=== PATIENT | male | born 1965 | race Caucasian/White ===

== ENCOUNTER 2016-08-13 17:49 | Emergency (ER) | payer OTHER ==
[~2016-08-13] VITALS: Ht 182.9 cm; Wt 94.5 kg
[~2016-08-13 17:49] MED LIST: HYDR-3498 PO; IBUP-1542 PO
[2016-08-13 17:57] VITALS: Ht 182.9 cm; Wt 94.5 kg
[2016-08-13] MEDS ORDERED: LIDOCAINE 1%/EPI 30 ML INJ INJ STA (19:01)
[2016-08-13] MEDS ORDERED: HYDROmorphONE 1 MG/ML SYG IV STA (19:01)
[2016-08-13] MEDS ORDERED: ONDANSETRON 4 MG INJ IV STA (19:01)
--- NOTE | 2016-08-13 19:33 | ERD ---
ER Documentation Chief Complaint Date/Time DATE: 08/13/16 TIME: 19:31 Chief Complaint pt here for abscess x 5 days; cp complaint HPI 51-year-old male history of IV drug abuse, multiple abscesses who presents to the emergency room with an abscess to the left hip. He describes approximately 5 days of symptoms. He also reported chest pain but describes the chest pain is pain radiating from the abscess up into his body and into his chest. He denies pleuritic pain, no exertional symptoms, no history of hypertension, cardiac disease or stents. He denies pleuritic pain, calf swelling. ROS All systems reviewed and are negative except as per history of present illness. Medications Home Meds Active Scripts Ibuprofen* (Motrin*) 800 Mg Tab, 800 MG PO Q6H Y for PAIN AND OR ELEVATED TEMP, #30 TAB Prov:SANTOS MAGALLON MD 08/13/16 Cephalexin* (Keflex*) 500 Mg Capsule, 500 MG PO QID for 7 Days, CAP Prov:SANTOS MAGALLON MD 08/13/16 Sulfamethoxazole-Trimethoprim* (Bactrim* DS) 800-160 Mg Tab, 1 TAB PO BID for 7 Days, TAB Prov:SANTOS MAGALLON MD 08/13/16 Ibuprofen* (Motrin*) 600 Mg Tab, 600 MG PO Q6, #20 TAB Prov:CHASIDY GARNETT MD 07/15/15 Hydrocodone Bit-Acetaminophen* ([place]*) 5-325 Mg Tab, 1 TAB PO Q6 Y for PAIN, # 10 TAB Prov:CHASIDY GARNETT MD 07/15/15 Allergies Allergies: Coded Allergies: No Known Allergy (Unverified , 07/15/15) PMhx/Soc History of Surgery: Yes (APPENDECTOMY; LUNG,SHOULDER, NOSE SURGERY) Anesthesia Reaction: No Hx Neurological Disorder: No Hx Respiratory Disorders: No Hx Cardiac Disorders: No Hx Psychiatric Problems: No Hx Miscellaneous Medical Probl: Yes (CHRONIC PANCREATITIS, HEP C) Hx Alcohol Use: Yes (USED TO DRINK ALCOHOL) Hx Substance Use: No Hx Tobacco Use: Yes Smoking Status: Current every day smoker Physical Exam Vitals Vital Signs Date Time Temp Pulse Resp B/P Pulse Ox O2 Delivery O2 Flow Rate FiO2 08/13/16 19:14 Nasal Cannula 08/13/16 17:57 97.5 95 18 139/73 96 Physical Exam General: Well developed, well nourished, no acute distress Head: Normocephalic, atraumatic. Eyes: Pupils equally reactive, EOM intact ENT: Moist mucous membranes Neck: Supple, no lymphadenopathy Respiratory: Lungs clear bilaterally, no distress Cardiovascular: RRR, no murmurs, rubs, or gallops Abdominal: Soft, non-tender, non-distended, no peritoneal signs : Deferred MSK: No edema, no unilateral swelling, 5/5 strength Neurologic: Alert and oriented, moving all extremities, normal speech, no focal weakness, no cerebellar signs Skin: Very large approximately 5 x 5 cm abscess located to the left lateral proximal leg. Erythema, fluctuance and induration is noted. Tenderness is noted. No crepitus. Psych: Normal mood Result Diagram: 08/13/16191808/13/161918 Results 24 hrs Laboratory Tests Test 08/13/16 19:19 White Blood Count 9.310^3/ul Red Blood Count 4.1110^6/ul Hemoglobin 11.6g/dl Hematocrit 35.5% Mean Corpuscular Volume 86.4fl Mean Corpuscular Hemoglobin 28.2pg Mean Corpuscular Hemoglobin Concent 32.7g/dl Red Cell Distribution Width 13.5% Platelet Count 60086^3/UL Mean Platelet Volume 10.9fl Neutrophils % 75.2% Lymphocytes % 12.9% Monocytes % 8.2% Eosinophils % 3.2% Basophils % 0.3% Nucleated Red Blood Cells % 0.0/100WBC Neutrophils # 7.010^3/ul Lymphocytes # 1.210^3/ul Monocytes # 0.810^3/ul Eosinophils # 0.310^3/ul Basophils # 0.010^3/ul Nucleated Red Blood Cells # 0.010^3/ul Prothrombin Time 14.9Sec Prothrombin Time Ratio 1.2 INR International Normalized Ratio 1.16 Activated Partial Thromboplast Time 33.8Sec Sodium Level 139mmol/L Potassium Level 3.5mmol/L Chloride Level 97mmol/L Carbon Dioxide Level 33mmol/L Anion Gap 13 Blood Urea Nitrogen 11mg/dl Creatinine 0.84mg/dl Glucose Level 101mg/dl Calcium Level 8.9mg/dl Troponin I < 0.012ng/ml Current Medications Medications (Trade) Dose Ordered Sig/Julian Route PRN Reason Start Time Stop Time Status Last Admin Dose Admin Hydromorphone HCl (Dilaudid) 1 mg ONCE STAT IV 08/13/16 19:01 08/13/16 19:05 DC 08/13/16 19:20 Ondansetron HCl (Zofran Inj) 4 mg ONCE STAT IV 08/13/16 19:01 08/13/16 19:05 DC 08/13/16 19:20 Lidocaine/ Epinephrine (Xylocaine 1%/ Epi) 30 ml ONCE STAT INJ 08/13/16 19:01 08/13/16 19:05 DC Procedures/MDM EKG, MONITORS, & DIAGNOSTIC IMAGING: EKG: I reviewed and interpreted a 12-lead EKG. Rhythm: Normal sinus rhythm Ectopy: None Intervals: No abnormalities ST segments: No elevations or depressions T waves: No contiguous inversions Chest x-ray: Radologist read IMPRESSION: 1. Ill-defined right basilar opacity could reflect pneumonia / pneumonitis in the appropriate clinical setting. Recommend short term follow up chest radiograph within 4-6 weeks to evaluate for resolution. Findings discussed with Santos Magallon at 08/13/2016 8:13:00 PM RPTAT: UU PROCEDURES: Incision and Drainage Note: The patient was consented prior to procedure and understands the risks, benefits , alternatives. The patient states verbal consent. Location: Left hip Abscess size: 5 cm Anesthesia: 8 cc of 1% lidocaine with epinephrine Packing-type: Iodoform gauze Removal of approximately 90 cc of purulent material using suction The area was prepped in a sterile fashion, a sterile field was prepared. A midline abscess incision was made with a scalpel in a linear fashion. Purulent material was expressed with blunt probing to break up loculations as well as direct pressure. Packing was placed as described above. The patient tolerated the procedure well and there were no complications. A clean dressing was applied. LAB INTERPRETATION: No leukocytosis, negative troponin MEDICAL DECISION MAKING: The patient's chest pain is likely secondary to his description of pain. I do not believe his chest pain is consistent with cardiac etiology. He has no exertional symptoms. No signs or symptoms concerning for pulmonary embolism. No evidence of endocarditis, no murmur. Patient denies recent IV drug abuse but there is some suspicion for this is the patient has a history of IV drug abuse and the location is most consistent with likely IV drug abuse. The patient will benefit from incision and drainage, antibiotics and outpatient management with packing, wound changes and warm sitz bath soaks. ER COURSE: Incision and drainage performed as documented above. Patient had significant drainage. The wound is clean and packed. I discussed removal of packing in 2 days, sitz baths, healing by secondary intention. We discussed dressing changes 3 times daily. Troponin negative. Chest x-ray with ill-defined opacification as documented above. Patient informed that outpatient follow-up is required for repeat x-ray imaging. Patient has a history of IV drug abuse but no fever, no cough to suggest embolic process. This is likely nonspecific and related to atelectasis rather than acute process. I kept the patient and/or family informed of laboratory and diagnostic imaging results throughout the emergency room course. DISPOSITION PLAN: We discussed follow up with the patient's primary care doctor within 24 to 48 hours as needed. We also discussed return to the emergency room for worsening symptoms or worsening condition. Outpatient referral: None required Discharge Medications: Bactrim, Keflex, Motrin Departure Diagnosis: Primary Impression: Abscess of left hip Additional Impression: Atypical chest pain Condition: Stable SANTOS MAGALLON MD Aug 13, 2016 19:33
[2016-08-13 19:40] LABS: ADD SCAN DIFF NO
[2016-08-13 19:46] LABS: BASOPHILS % 0.3 % (0.0-2.0); EOSINOPHILS # 0.3 10^3/ul (0.0-0.5); EOSINOPHILS % 3.2 % (0.0-7.0); HEMATOCRIT 35.5 % (42.0-52.0); HEMOGLOBIN 11.6 g/dl (14.0-18.0); LYMPHOCYTES # 1.2 10^3/ul (0.8-2.9); LYMPHOCYTES % 12.9 % (15.0-51.0); MEAN CORPUSCULAR HEMOGLOBIN 28.2 pg (29.0-33.0); MEAN CORPUSCULAR HGB CONC 32.7 g/dl (32.0-37.0); MEAN CORPUSCULAR VOLUME 86.4 fl (82.0-101.0); MEAN PLATELET VOLUME 10.9 fl (7.4-10.4); MONOCYTE # 0.8 10^3/ul (0.3-0.9); MONOCYTES % 8.2 % (0.0-11.0); NEUTROPHILS % 75.2 % (39.0-77.0); PLATELET COUNT 198 10^3/UL (140-415); RED BLOOD COUNT 4.11 10^6/ul (4.70-6.10); RED CELL DISTRIBUTION WIDTH 13.5 % (11.5-14.5); WHITE BLOOD COUNT 9.3 10^3/ul (4.8-10.8)
[2016-08-13] MEDS ORDERED: IBUP800T25 PO (19:48)
[2016-08-13] MEDS ORDERED: CEPH-443 PO (19:48)
[2016-08-13] MEDS ORDERED: BACTDS PO (19:48)
[2016-08-13 19:58] LABS: INR 1.16; PROTIME 14.9 Sec (12.2-14.2); PT RATIO 1.2
[2016-08-13 19:59] LABS: PARTIAL THROMBOPLASTIN TIME 33.8 Sec (25.0-35.0)
[2016-08-13 20:01] LABS: CHLORIDE 97 mmol/L (97-110)
[2016-08-13 20:02] LABS: POTASSIUM 3.5 mmol/L (3.5-5.1); SODIUM 139 mmol/L (135-144)
[2016-08-13 20:04] LABS: CREATININE 0.84 mg/dl (0.61-1.24)
[2016-08-13 20:05] LABS: ANION GAP 13 (8-16); BLOOD UREA NITROGEN 11 mg/dl (7-20); CARBON DIOXIDE 33 mmol/L (21-31); GLUCOSE 101 mg/dl (70-220)
[2016-08-13 20:06] LABS: CALCIUM 8.9 mg/dl (8.4-10.2)
[2016-08-13 20:13] LABS: TROPONIN-I < 0.012 ng/ml (0.00-0.12)
--- NOTE | 2016-08-13 20:13 | RADRPT ---
PROCEDURE: XR Chest. CLINICAL INDICATION: Chest pain TECHNIQUE: Single view of the chest COMPARISON: No prior study is available for comparison. FINDINGS: Ill-defined opacity at the right lung base may reflect mild pneumonia / pneumonitis in the appropria te clinical setting. The heart size is normal. There is no pleural effusion. There is no pneumothorax. There is no acute osseous abnormality. IMPRESSION: 1. Ill-defined right basilar opacity could reflect pneumonia / pneumonitis in the appropriate clini nathalie setting. Recommend short term follow up chest radiograph within 4-6 weeks to evaluate for resol ution. Findings discussed with Santos Magallon at 08/13/2016 8:13:00 PM RPTAT: UU .Rolando Dominguez MD, MD Date Time Electronically viewed and signed by .Rolando Dominguez MD, on 08/13/2016 20:13 .K/
[2016-08-13 21:00] VITALS: BP 123/88; PULSE 84; RESP 18; TEMP 98
== END 2016-08-13 21:02 | disposition home or self-care (01) ==
LOC: E/R 17:49
DX: L02.416 Cutaneous abscess of left lower limb (principal); R07.89 Other chest pain; F17.210 Nicotine dependence, cigarettes, uncomplicated
CPT/HCPCS: 10061; 36415; 71010; 80048; 84484; 85025; 85610; 85730; 93005; 96374; 96375; J1170; J2405; Z7502; Z7610

== ENCOUNTER 2016-10-07 22:27 | Emergency (ER) | payer OTHER ==
[~2016-10-07] VITALS: Ht 182.9 cm; Wt 98.5 kg
[~2016-10-07 22:27] MED LIST changes: +BACTDS PO; +CEPH-443 PO; +IBUP800T25 PO
[2016-10-07 22:38] VITALS: Ht 182.9 cm; Wt 98.5 kg
[2016-10-07] MEDS ORDERED: LIDOCAINE 1%/EPI 30 ML INJ INJ STA (23:44)
--- NOTE | 2016-10-07 23:44 | ERD ---
ER Documentation Chief Complaint Date/Time DATE: 10/07/16 TIME: 23:40 Chief Complaint Abscess to RU arm HPI This 51-year-old male patient presents to emergency department today with left upper arm pain. Patient reports large pain for hot abscess starting 7 days ago. History of abscess in the past located on hip. Denies history of MRSA. Patient reports nausea secondary to pain, states that the abscess is making it difficult for him to move his arm. Patient has difficulty removing shirt during exam. Reports that he is not taking any pain medication for symptomatic relief. Denies fever, chills, numbness or tingling to fingers. Patient denies any spontaneous rupture or drainage from abscess. ROS All systems reviewed and are negative except as per history of present illness. Medications Home Meds Active Scripts Ibuprofen* (Motrin*) 800 Mg Tab, 800 MG PO Q6H Y for PAIN AND OR ELEVATED TEMP, #30 TAB Prov:BOBBY BRENNER MD 08/13/16 Cephalexin* (Keflex*) 500 Mg Capsule, 500 MG PO QID for 7 Days, CAP Prov:BOBBY BRENNER MD 08/13/16 Sulfamethoxazole-Trimethoprim* (Bactrim* DS) 800-160 Mg Tab, 1 TAB PO BID for 7 Days, TAB Prov:BOBBY BRENNER MD 08/13/16 Ibuprofen* (Motrin*) 600 Mg Tab, 600 MG PO Q6, #20 TAB Prov:CHASIDY GARNETT MD 07/15/15 Hydrocodone Bit-Acetaminophen* ([place]*) 5-325 Mg Tab, 1 TAB PO Q6 Y for PAIN, # 10 TAB Prov:CHASIDY GARNETT MD 07/15/15 Allergies Allergies: Coded Allergies: No Known Allergy (Unverified , 07/15/15) PMhx/Soc History of Surgery: Yes (APPENDECTOMY; LUNG,SHOULDER, NOSE SURGERY) Anesthesia Reaction: No Hx Neurological Disorder: No Hx Respiratory Disorders: No Hx Cardiac Disorders: No Hx Psychiatric Problems: No Hx Miscellaneous Medical Probl: Yes (CHRONIC PANCREATITIS, HEP C) Hx Alcohol Use: Yes (USED TO DRINK ALCOHOL) Hx Substance Use: No Hx Tobacco Use: Yes Physical Exam Vitals Vital Signs Date Time Temp Pulse Resp B/P Pulse Ox O2 Delivery O2 Flow Rate FiO2 10/07/16 22:38 98.9 80 16 129/76 100 Vitals stable, triage notes reviewed Physical Exam Const: No acute distress, in obvious discomfort Head: Atraumatic Eyes: Normal Conjunctiva, PERRLA, EOMI ENT: Normal External Ears, Nose and Mouth. Neck: Resp: Chest rise and fall symmetrically, clear to auscultation bilaterally, no respiratory distress Cardio: Abd: Skin: Left upper arm presents with erythema, raised fluctuating abscess without pustule or ulceration Back: Ext: Neur: Awake and alert Psych: Normal Mood and Affect Results 24 hrs Current Medications Medications (Trade) Dose Ordered Sig/Julian Route PRN Reason Start Time Stop Time Status Last Admin Dose Admin Acetaminophen/ Hydrocodone Bitart ([place] (5/325)) 1 tab ONCE ONCE PO 10/08/16 00:00 10/08/16 00:01 DC 10/07/16 23:57 Lidocaine/ Epinephrine (Xylocaine 1%/ Epi) 30 ml ONCE STAT INJ 10/07/16 23:44 10/07/16 23:49 DC Procedures/MDM Abscess Incision and Drainage with irrigation by me: Procedure note Informed consent obtained. The area was prepped in the usual manner and the skin overlying the abscess was anesthetized with 4cc of 1% lidocaine with epinephrine using aseptic technique the area was sharply incised using an 11 blade, spontaneous drainage of bloody purulent discharge. Exploration left cavity with with 4 cm tunneling wound copiously irrigated with sterile saline. Packing was inserted. Bulky pressure dressing applied. Location: Right upper arm Anesthesia: Local 1% Lidocaine with epinephrine infused locally 4 mL Technique: Irrigated. Disrupted loculations w/ instrumentation Packing: Iodoform gauze Complications: Neurovascularly intact post procedure This 51-year-old male patient presents to the emergency department today with large abscess requiring incision and drainage, patient has an approximately 5 cm x 3 cm fluctuating tender abscess prior to I&D.Patient's skin symptoms have stabilized while they have been evaluated in the Exam and w/u not consistent w/ sepsis, deep space infection, or foreign body.Surrounding erythema and warmth continues likely cellulitis with abscess. Patient will start on Keflex 500 mg 4 times daily 10 days Bactrim double strength 1 tab p.o. twice daily 10 days. Prescribed Motrin 400 mg p.o. every 6 hours as needed. Reinforced wound recheck and packing removal in 48 hours. I feel the patient is stable for discharge at this time with outpatient management and 48 hour wound assessment here in emergency department. I have discussed results, examination findings, the treatment plan with the patient and family present prior to discharge. Indications for emergent reevaluation, side effects of medication were also discussed. All questions were answered. Patient verbalizes understanding and agrees with plan of care. Departure Diagnosis: Primary Impression: Acute abscess Condition: Good Patient Instructions: Abscess Drainage Additional Instructions: Thank you for for coming to [facility] for your care today. Please ask your nurse or provider if you have questions about your care today and do not leave until all your questions have been answered. Please use any medications given as directed and follow-up with your doctor (or the doctor you were referred to) in the next 2-3 days. If you do not have a primary care doctor you may follow up at the [facility] (listed below). You may also use motrin and tylenol as needed for fever and/or pain unless instructed otherwise by your provider or nurse. Indications for more urgent follow-up have been discussed, but you may return to the Emergency Department at ANY time for any worrisome or worsening symptoms. If you have abdominal pain, please know that no test or exam you received is perfect and you should follow up within 8 hours for continued pain. If you had any imaging studies today, such as an X-Ray or CT Scan, these studies will be reviewed later by a radiologist. You will be called if there are important findings that were not identified today, so make sure the contact information you provided at registration is correct. If you received any narcotic pain control medicine today, such as Vicodin, Morphine or Dilaudid, your coordination and judgment may be affected for a number of hours. Please do not drive or operate heavy machinery, and you may want someone to assist you at home. If you were given a prescription for narcotic medication, be aware that it is very addictive- use sparingly and only if necessary. JOANNA MOSER October 07, 2016 23:44
[2016-10-08] MEDS ORDERED: HYDROCODONE/APAP (5/325) TAB PO ONE
[2016-10-08] MEDS ORDERED: CEPH-443 PO (01:22)
[2016-10-08] MEDS ORDERED: IBUP400T22 PO (01:23)
[2016-10-08] MEDS ORDERED: SULF1TAB31 PO (01:23)
[2016-10-08 02:15] VITALS: BP 148/92; PULSE 78; RESP 20; TEMP 98.3
== END 2016-10-08 02:00 | disposition home or self-care (01) ==
LOC: FTE 22:27
DX: L02.413 Cutaneous abscess of right upper limb (principal); Z87.891 Personal history of nicotine dependence
CPT/HCPCS: 10061; Z7610

== ENCOUNTER 2016-12-22 18:03 | Emergency (ER) | payer OTHER ==
[~2016-12-22] VITALS: Ht 175.3 cm; Wt 94.5 kg
[~2016-12-22 18:03] MED LIST changes: +IBUP400T22 PO; +SULF1TAB31 PO
[2016-12-22 18:06] VITALS: Ht 175.3 cm; Wt 94.5 kg
[2016-12-22] MEDS ORDERED: LIDOCAINE 1% (MDV) 20 ML INJ SC ONE (19:30)
[2016-12-22] MEDS ORDERED: CEPHALEXIN 500 MG CAP PO ONE (19:30)
[2016-12-22] MEDS ORDERED: HYDROCODONE/APAP (5/325) TAB PO ONE (19:30)
[2016-12-22] MEDS ORDERED: TRIMETHOPRIM/SULFAMETHOX (DS) TAB PO ONE (19:30)
[2016-12-22] MEDS ORDERED: SULF1TAB31 PO (19:32)
[2016-12-22] MEDS ORDERED: CEPH-443 PO (19:32)
[2016-12-22] MEDS ORDERED: HYDR-906 PO (19:32)
--- NOTE | 2016-12-22 19:35 | ERD ---
ER Documentation Chief Complaint Date/Time DATE: 12/22/16 TIME: 19:33 Chief Complaint Complains of abscess to right buttok are HPI This 51-year-old male complains of redness and swelling on his right lateral hip area for last 3 days. He has a history of recurrent abscess in this area. He states that when he gets hit or bruised area develops an abscess. He denies any injections or drug use. Denies any fevers, vomiting, shortness breath or chest pain. ROS All systems reviewed and are negative except as per history of present illness. Medications Home Meds Active Scripts Cephalexin* (Keflex*) 500 Mg Capsule, 500 MG PO QID for 7 Days, CAP Prov:CHASIDY GARNETT MD 12/22/16 Sulfamethoxazole/Trimethoprim* (Bactrim Ds* Tablet) 1 Each Tablet, 1 TAB PO BID for 7 Days, #14 TAB Prov:CHASIDY GARNETT MD 12/22/16 Hydrocodone/Acetaminophen ([place] 5-325 Tablet) 1 Each Tablet, 1 TAB PO Q6H Y for PAIN, #12 TAB Prov:CHASIDY GARNETT MD 12/22/16 Ibuprofen* (Motrin*) 400 Mg Tab, 400 MG PO Q6, #30 TAB Prov:SHANTI,JOANNA 10/08/16 Sulfamethoxazole/Trimethoprim* (Bactrim Ds* Tablet) 1 Each Tablet, 1 TAB PO BID for 10 Days, #20 TAB Prov:SHANTI,JOANNA 10/08/16 Cephalexin* (Keflex*) 500 Mg Capsule, 500 MG PO QID for 10 Days, CAP Prov:SHANTI,JOANNA 10/08/16 Ibuprofen* (Motrin*) 800 Mg Tab, 800 MG PO Q6H Y for PAIN AND OR ELEVATED TEMP, #30 TAB Prov:BOBBY BRENNER MD 08/13/16 Cephalexin* (Keflex*) 500 Mg Capsule, 500 MG PO QID for 7 Days, CAP Prov:BOBBY BRENNER MD 08/13/16 Sulfamethoxazole-Trimethoprim* (Bactrim* DS) 800-160 Mg Tab, 1 TAB PO BID for 7 Days, TAB Prov:BOBBY BRENNER MD 08/13/16 Ibuprofen* (Motrin*) 600 Mg Tab, 600 MG PO Q6, #20 TAB Prov:CHASIDY GARNETT MD 07/15/15 Hydrocodone Bit-Acetaminophen* ([place]*) 5-325 Mg Tab, 1 TAB PO Q6 Y for PAIN, # 10 TAB Prov:CHASIDY GARNETT MD 07/15/15 Allergies Allergies: Coded Allergies: No Known Allergy (Unverified , 07/15/15) PMhx/Soc History of Surgery: Yes (ABDOMINAL AND LUNG SURGERIES, CHOLECYSECTOMY, HERNIA , APPY,RT SHOULDER) Anesthesia Reaction: No Hx Neurological Disorder: No Hx Respiratory Disorders: No Hx Cardiac Disorders: No Hx Psychiatric Problems: Yes (DEPRESSION, ANXIETY) Hx Miscellaneous Medical Probl: No Hx Alcohol Use: No Hx Substance Use: No (OPIUM QUIT 2 YEARS AGO) Hx Tobacco Use: Yes (1/2 PACK/DAY) Smoking Status: Current every day smoker Physical Exam Vitals Vital Signs Date Time Temp Pulse Resp B/P Pulse Ox O2 Delivery O2 Flow Rate FiO2 12/22/16 18:06 97.8 108 20 142/84 98 Physical Exam Const: [], [id number]. Head: Atraumatic Eyes: Normal Conjunctiva ENT: Normal External Ears, Nose and Mouth. Neck: Full range of motion..~ No meningismus. Resp: Clear to auscultation bilaterally Cardio: Regular rate and rhythm, no murmurs Abd: Soft, non tender, non distended. Normal bowel sounds Skin: No petechiae or rashes. Some swelling or redness on the right lateral hip area. There is approximately 5 cm per Back: No midline or flank tenderness Ext: No cyanosis, or edema Neur: Awake and alert Psych: Normal Mood and Affect Results 24 hrs Current Medications Medications (Trade) Dose Ordered Sig/Julian Route PRN Reason Start Time Stop Time Status Last Admin Dose Admin Acetaminophen/ Hydrocodone Bitart ([place] (5/325)) 1 tab ONCE ONCE PO 12/22/16 19:30 12/22/16 19:31 DC 12/22/16 19:18 Cephalexin (Keflex) 500 mg ONCE ONCE PO 12/22/16 19:30 12/22/16 19:31 DC 12/22/16 19:17 Trimethoprim/ Sulfamethoxazole (Bactrim (Ds)) 1 tab ONCE ONCE PO 12/22/16 19:30 12/22/16 19:31 DC 12/22/16 19:17 Lidocaine (Xylocaine 1% (Mdv) 20 ml) 20 ml ONCE ONCE SC 12/22/16 19:30 12/22/16 19:31 DC Procedures/MDM Patient presents with signs and symptoms of an acute abscess in the right lateral hip area. Procedure note-the right hip area was prepped with Betadine. 5 cc of lidocaine was used for local infiltration. #11 scalpel was used to incise the wound. Copious pus was expressed. The wound was packed with approximately 8 cm of half -inch gauze and the wound was dressed. Patient tolerated procedure well. Patient was discharged home with a prescription of [place], Bactrim and Keflex. He was given his first dose of [place] and Bactrim and Keflex here. Patient shows no signs of sepsis osteomyelitis, suggestion of additional complications related to his right hip abscess. Departure Diagnosis: Primary Impression: Abscess Condition: Stable Patient Instructions: Abscess, Incision And Drainage Additional Instructions: Wound check in 2-3 days for gauze removal. Recheck otherwise for worsening redness, fevers, new symptoms. CHASIDY GARNETT MD Dec 22, 2016 19:35
== END 2016-12-22 19:38 | disposition home or self-care (01) ==
LOC: FTE 18:03
DX: L02.31 Cutaneous abscess of buttock (principal); F17.210 Nicotine dependence, cigarettes, uncomplicated
CPT/HCPCS: 10060; Z7502; Z7610

== ENCOUNTER 2017-01-03 21:28 | Inpatient (IN) | payer OTHER ==
[~2017-01-03] VITALS: Ht 175.3 cm; Wt 90.9 kg
[~2017-01-03 21:28] MED LIST changes: +HYDR-906 PO
[2017-01-04] VITALS (7 sets, daily range): BP systolic 169–228; BP diastolic 77–108; PULSE 69–86; RESP 20–22; TEMP 98.2; Ht 175.3 cm; Wt 90.9 kg
[2017-01-04] MEDS ORDERED: HYDROmorphONE 1 MG/ML SYG IV STA ×4 (01:04→05:32)
[2017-01-04] MEDS ORDERED: ONDANSETRON 4 MG INJ IV STA ×2 (01:04→03:53)
[2017-01-04] MEDS ORDERED: SOD CHLORIDE 0.9% 1,000 ML IV STA ×2 (01:04→03:53)
[2017-01-04] MEDS ORDERED: LORAZEPAM 2 MG INJ IV ONE ×2 (01:30→04:00)
--- NOTE | 2017-01-04 02:17 | RADRPT ---
PROCEDURE: CT of the abdomen and pelvis without contrast CLINICAL INDICATION: Abdominal Pain. TECHNIQUE: Spiral CT images through the abdomen and pelvis without the use of contrast. The admin istered radiation dose is CTDI 16.52 and DLP 1060.32. One or more of the following dose reduction t echniques were used: automated exposure control, adjustment of the mA and/or kV according to patient size, or use of iterative reconstruction technique. COMPARISON: None FINDINGS: Lack of oral and intravenous contrast somewhat limits evaluation. Slight dependent atelectasis of the lung bases is seen. No pleural effusion is seen. Minimal probable scarring of the right lung b ase. Aortic atherosclerotic change and trace coronary artery calcification. Small hiatal hernia. The stomach is distended with fluid. The liver, spleen, adrenals, and kidneys are unremarkable in appearance. There is mild diffuse enla rgement of the pancreas with slight stranding of the peripancreatic fat. No biliary or pancreatic d uctal dilatation is seen. The gallbladder is not seen and is presumably surgically absent. The duo denum is mildly dilated and fluid - filled. Tiny fat-containing umbilical hernia is seen. The appe ndix is not seen with certainty. No pericecal inflammatory process is seen.. . The bladder and pr ostate are unremarkable in appearance. There is no evidence for diverticulitis. No definite small bowel obstruction, free air, or abscess. No adenopathy or ascites is seen. Moderate stool burden. S light edema of the subcutaneous fat. There is mild degenerative change of the spine. IMPRESSION: Probable mild pancreatitis. No definite ductal dilatation.. RPTAT: [facility] Physician Margaret Date Time Electronically viewed and signed by Physician Margaret on 01/04/2017 02:16 JW/
[2017-01-04 02:46] LABS: BASOPHILS % 0.3 % (0.0-2.0); EOSINOPHILS % 0.3 % (0.0-7.0); HEMOGLOBIN 12.5 g/dl (14.0-18.0); LYMPHOCYTES # 0.8 10^3/ul (0.8-2.9); LYMPHOCYTES % 5.2 % (15.0-51.0); MEAN CORPUSCULAR HEMOGLOBIN 28.7 pg (29.0-33.0); MEAN CORPUSCULAR HGB CONC 33.8 g/dl (32.0-37.0); MEAN CORPUSCULAR VOLUME 84.9 fl (82.0-101.0); MEAN PLATELET VOLUME 10.7 fl (7.4-10.4); MONOCYTE # 0.4 10^3/ul (0.3-0.9); MONOCYTES % 2.6 % (0.0-11.0); NEUTROPHILS % 91.3 % (39.0-77.0); PLATELET COUNT 255 10^3/UL (140-415); RED BLOOD COUNT 4.36 10^6/ul (4.70-6.10); RED CELL DISTRIBUTION WIDTH 13.4 % (11.5-14.5); WHITE BLOOD COUNT 14.6 10^3/ul (4.8-10.8)
--- NOTE | 2017-01-04 02:46 | ERA ---
ER Documentation Chief Complaint Date/Time DATE: 01/04/17 TIME: 02:42 Chief Complaint 10/10 abd pain, diaphoretic, states he has hx of pancreatitis HPI 51-year-old male history of abdominal surgical history and pancreatitis, idiopathic, who presents to the emergency room with abdominal pain. He states that the pain started today is 10 out of 10 epigastric radiating to his back and similar to episodes of pancreatitis in the past. No hematemesis or melena. He denies recent alcohol abuse or intoxication. The patient is extremely histrionic and yelling and screaming at triage ROS All systems reviewed and are negative except as per history of present illness. Medications Home Meds Active Scripts Sulfamethoxazole/Trimethoprim* (Bactrim Ds* Tablet) 1 Each Tablet, 1 TAB PO BID for 7 Days, #14 TAB Prov:CHASIDY GARNETT MD 12/22/16 Ibuprofen* (Motrin*) 600 Mg Tab, 600 MG PO Q6, #20 TAB Prov:CHASIDY GARNETT MD 07/15/15 Reported Medications Quetiapine Fumarate* (Seroquel* XR) 400 Mg Tab.sr.24h, 400 MG PO DAILY, #30 TAB TK 2 TABLETS AT BEDTIME 01/04/17 Paroxetine Hcl* (Paxil*) 40 Mg Tablet, 40 MG PO HS, TAB 01/04/17 Propranolol Hcl* (Propranolol Hcl*) 40 Mg Tablet, 40 MG PO TID, TAB 01/04/17 Discontinued Scripts Cephalexin* (Keflex*) 500 Mg Capsule, 500 MG PO QID for 7 Days, CAP Prov:CHASIDY GARNETT MD 12/22/16 Hydrocodone/Acetaminophen ([place] 5-325 Tablet) 1 Each Tablet, 1 TAB PO Q6H Y for PAIN, #12 TAB Prov:CHASIDY GARNETT MD 12/22/16 Ibuprofen* (Motrin*) 400 Mg Tab, 400 MG PO Q6, #30 TAB Prov:SHANTI,JOANNA 10/08/16 Sulfamethoxazole/Trimethoprim* (Bactrim Ds* Tablet) 1 Each Tablet, 1 TAB PO BID for 10 Days, #20 TAB Prov:SHANTI,JOANNA 10/08/16 Cephalexin* (Keflex*) 500 Mg Capsule, 500 MG PO QID for 10 Days, CAP Prov:SHANTI,JOANNA 10/08/16 Ibuprofen* (Motrin*) 800 Mg Tab, 800 MG PO Q6H Y for PAIN AND OR ELEVATED TEMP, #30 TAB Prov:BOBBY BRENNER MD 08/13/16 Cephalexin* (Keflex*) 500 Mg Capsule, 500 MG PO QID for 7 Days, CAP Prov:BOBBY BRENNER MD 08/13/16 Sulfamethoxazole-Trimethoprim* (Bactrim* DS) 800-160 Mg Tab, 1 TAB PO BID for 7 Days, TAB Prov:BOBBY BRENNER MD 08/13/16 Hydrocodone Bit-Acetaminophen* ([place]*) 5-325 Mg Tab, 1 TAB PO Q6 Y for PAIN, # 10 TAB Prov:CHASIDY GARNETT MD 07/15/15 Allergies Allergies: Coded Allergies: No Known Allergy (Unverified , 07/15/15) PMhx/Soc Anesthesia Reaction: No Hx Neurological Disorder: No Hx Respiratory Disorders: No Hx Cardiac Disorders: No Hx Psychiatric Problems: No Hx Alcohol Use: No Hx Substance Use: No Hx Tobacco Use: Yes Smoking Status: Current every day smoker FmHx Family History: No diabetes Physical Exam Vitals Vital Signs Date Time Temp Pulse Resp B/P Pulse Ox O2 Delivery O2 Flow Rate FiO2 01/04/17 01:32 74 20 169/89 100 Room Air 01/03/17 21:31 97.6 88 18 177/115 100 Physical Exam General: Histrionic, yelling and screaming and writhing in pain Head: Normocephalic, atraumatic. Eyes: Pupils equally reactive, EOM intact ENT: Moist mucous membranes Neck: Supple, no lymphadenopathy Respiratory: Lungs clear bilaterally, no distress Cardiovascular: RRR, no murmurs, rubs, or gallops Abdominal: Soft, mild diffuse tenderness without peritonitis : Deferred MSK: No edema, no unilateral swelling, 5/5 strength Neurologic: Alert and oriented, moving all extremities, normal speech, no focal weakness, no cerebellar signs Skin: No rash Psych: Normal mood Result Diagram: 01/04/1721401/04/17 0215 Results 24 hrs Laboratory Tests Test 01/03/17 22:02 01/04/17 02:15 Bedside Glucose 150mg/dL White Blood Count 14.610^3/ul Red Blood Count 4.3610^6/ul Hemoglobin 12.5g/dl Hematocrit 37.0% Mean Corpuscular Volume 84.9fl Mean Corpuscular Hemoglobin 28.7pg Mean Corpuscular Hemoglobin Concent 33.8g/dl Red Cell Distribution Width 13.4% Platelet Count 53900^3/UL Mean Platelet Volume 10.7fl Neutrophils % 91.3% Lymphocytes % 5.2% Monocytes % 2.6% Eosinophils % 0.3% Basophils % 0.3% Nucleated Red Blood Cells % 0.0/100WBC Neutrophils # (Manual) 1310^3/ul Lymphocytes # 0.810^3/ul Monocytes # 0.410^3/ul Eosinophils # 0.010^3/ul Basophils # 0.010^3/ul Nucleated Red Blood Cells # 0.010^3/ul Sodium Level 139mmol/L Potassium Level 3.5mmol/L Chloride Level 100mmol/L Carbon Dioxide Level 27mmol/L Anion Gap 16 Blood Urea Nitrogen 14mg/dl Creatinine 0.92mg/dl Glucose Level 151mg/dl Calcium Level 9.4mg/dl Total Bilirubin 0.3mg/dl Direct Bilirubin 0.00mg/dl Indirect Bilirubin 0.3mg/dl Aspartate Amino Transf (AST/SGOT) 19IU/L Alanine Aminotransferase (ALT/SGPT) 26IU/L Alkaline Phosphatase 164IU/L Total Protein 8.3g/dl Albumin 4.2g/dl Globulin 4.10g/dl Albumin/Globulin Ratio 1.02 Lipase U/L Current Medications Medications (Trade) Dose Ordered Sig/Julian Route PRN Reason Start Time Stop Time Status Last Admin Dose Admin Sodium Chloride (NS) 1,000 ml @ 1,000 mls/hr Q1H STAT IV 01/04/17 01:04 01/04/17 02:03 DC 01/04/17 01:26 Hydromorphone HCl (Dilaudid) 1 mg ONCE STAT IV 01/04/17 01:04 01/04/17 01:06 DC 01/04/17 01:26 Ondansetron HCl (Zofran Inj) 4 mg ONCE STAT IV 01/04/17 01:04 01/04/17 01:06 DC 01/04/17 01:26 Lorazepam (Ativan) 1 mg ONCE ONCE IV 01/04/17 01:30 01/04/17 01:31 DC 01/04/17 01:26 Hydromorphone HCl (Dilaudid) 1 mg ONCE STAT IV 01/04/17 01:53 01/04/17 01:54 DC 01/04/17 01:59 Ondansetron HCl (Zofran Inj) 4 mg BRIDGE ORDER PRN IV NAUSEA AND/OR VOMITING 01/04/17 04:00 01/05/17 03:59 Acetaminophen 650 mg 650 mg ER BRIDGE PRN PO MILD PAIN/FEVER 01/04/17 04:00 01/05/17 03:59 Sodium Chloride (NS) 1,000 ml @ 1,000 mls/hr Q1H STAT IV 01/04/17 03:53 01/04/17 04:52 01/04/17 03:58 Hydromorphone HCl (Dilaudid) 1 mg ONCE STAT IV 01/04/17 03:53 01/04/17 03:54 DC 01/04/17 03:58 Ondansetron HCl (Zofran Inj) 4 mg ONCE STAT IV 01/04/17 03:53 01/04/17 03:54 DC 01/04/17 03:59 Lorazepam (Ativan) 1 mg ONCE ONCE IV 01/04/17 04:00 01/04/17 04:01 DC 01/04/17 03:59 Procedures/MDM EKG, MONITORS, & DIAGNOSTIC IMAGING: CT abdomen and pelvis: Mild pancreatitis per radiology read LAB INTERPRETATION: Lipase is still being diluted. Leukocytosis of 14.6 Procedure: Peripheral IV Insertion: Indication: Difficult IV access Location: Right EJ Attempts: 1 Angiocath-type: 18 The patient was consented prior to procedure and states understanding of risks, benefits, alternatives. Verbal consent was provided Sterile procedure was used to insert a peripheral IV. Indication, location and Angiocath-type are noted above. Ultrasound guidance was used to assist in the insertion of the Angiocath. Return of dark nonpulsatile blood was obtained, normal saline flushed through the Angiocath which was then secured to the skin. The patient tolerated the procedure well without complications. Emergency Bedside Ultrasound: The patient was verbally consented prior to procedure and understands the risks , benefits, and alternatives. The patient is agreeable to procedure and has given verbal consent. Indication: Peripheral IV insertion Probe Type: Linear Findings: Dynamic ultrasound utilized with compression technique with both linear and horizontal views. MEDICAL DECISION MAKING: Patient with a history of pancreatitis who presents with exacerbation of abdominal pain. This is most concerning for acute on chronic pancreatitis. Consider bowel obstruction given the patient's abdominal surgical history. The patient will benefit from laboratory testing and CT of the abdomen and pelvis. There is a mild suspicion of drug-seeking behavior in this patient but he does not have regular visits to the emergency room for these symptoms. The patient was provided with fluids and pain medication. ER COURSE: Multiple doses of pain medication including Ativan provided to the patient with IV fluids. CT confirms acute pancreatitis warranting hospitalization. The patient required multiple doses of repeat pain medications. His lipase is still being diluted. This is consistent with acute on chronic pancreatitis and warrants hospitalization. The patient is n.p.o. and has received 2 L of saline. He stable for the floor. I kept the patient and/or family informed of laboratory and diagnostic imaging results throughout the emergency room course. DISPOSITION PLAN: Medical surgical admission for management of acute on chronic pancreatitis CONSULTATION: Accepting care team and consultations: I discussed the current laboratory data, diagnostic imaging and emergency care provided. Admitting team: Dr. Alcazar Admitting team indication: Insurance directed Departure Diagnosis: Primary Impression: Pancreatitis Qualified Code: K85.00 - Idiopathic acute pancreatitis without infection or necrosis Condition: BOBBY Joseph MD Jan 04, 2017 02:44
[2017-01-04] MEDS ORDERED: QUET400T4 PO (03:04)
[2017-01-04] MEDS ORDERED: PARO40TA48 PO (03:04)
[2017-01-04] MEDS ORDERED: PROP40TA4 PO (03:04)
[2017-01-04 03:20] LABS: ALBUMIN 4.2 g/dl (3.3-4.9); ALBUMIN/GLOBULIN RATIO 1.02; BILIRUBIN,INDIRECT 0.3 mg/dl (0-1.1); BILIRUBIN,TOTAL 0.3 mg/dl (0.2-1.3); CALCIUM 9.4 mg/dl (8.4-10.2); CREATININE 0.92 mg/dl (0.61-1.24); POTASSIUM 3.5 mmol/L (3.5-5.1); TOTAL PROTEIN 8.3 g/dl (6.1-8.1)
[2017-01-04] MEDS ORDERED: ONDANSETRON 4 MG INJ IV PRN (04:00)
[2017-01-04] MEDS ORDERED: ACETAMINOPHEN 325 MG TAB PO PRN (04:00)
--- NOTE | 2017-01-04 04:26 | HP ---
Date/Time of Note Date/Time of Note DATE: 01/04/17 TIME: 04:16 Assessment/Plan VTE Prophylaxis VTE Prophylaxis Intervention: ambulation, SCD's Assessment/Plan Assessment/Plan 1. Acute on chronic pancreatitis (lipase out of range) -denies alcohol use 2. Chronic ?depression 3. Tobacco dependence PLAN: Admit / NPO / IVF / IV PPI / Supportive care and pain control US RUQ r/o stones / lipid profile Smoking Cessation Therapy: Pt. was lectured for greater than 3 minutes on the health risks of continued smoking and the benefits of cessation.and this will continue to be reinforced throughout hospitalization. HPI/ROS Admit Date/Time Admit Date/Time 01/04/17 Hx of Present Illness This is a 51-year-old male who presented to the emergency room of 1 day history of abdominal pain. Pain is said to be in the epigastric region, he started suddenly, and has only been worsening in intensity. Patient is has had a few episodes of nausea and vomiting. Pain is said to radiates to his back, but there is no blood in his stool or in his vomit, he also denies dysuria, he denies alcohol use. PMH/Family/Social Past Medical History * Pancreatitis Past Surgical History * Lung and Stomach surgery * Cholecystectomy Social History Smoking Status: Current every day smoker Exam/Review of Systems Vital Signs Vitals Vital Signs Date Time Temp Pulse Resp B/P Pulse Ox O2 Delivery O2 Flow Rate FiO2 01/04/17 04:11 98.1 81 18 182/96 99 Room Air Exam Constitutional: alert, distress, oriented Head: atraumatic, normocephalic Eyes: PERRL ENMT: mucosa pink and moist Neck: non-tender Respiratory: clear to auscultation, diminished breath sounds Cardiovascular: nl pulses, regular rate and rhythm Gastrointestinal: bowel sounds, other (Patient reports diffuse tenderness all over, keeps asking for pain medication), soft Extremities: No edema Skin: No rash or lesions Labs Result Diagram: 01/04/175 01/04/17214 Procedures Procedures Laboratory Tests Test 01/03/17 22:02 01/04/17 02:15 Bedside Glucose 150mg/dL White Blood Count 14.610^3/ul Red Blood Count 4.3610^6/ul Hemoglobin 12.5g/dl Hematocrit 37.0% Mean Corpuscular Volume 84.9fl Mean Corpuscular Hemoglobin 28.7pg Mean Corpuscular Hemoglobin Concent 33.8g/dl Red Cell Distribution Width 13.4% Platelet Count 73333^3/UL Mean Platelet Volume 10.7fl Neutrophils % 91.3% Lymphocytes % 5.2% Monocytes % 2.6% Eosinophils % 0.3% Basophils % 0.3% Nucleated Red Blood Cells % 0.0/100WBC Neutrophils # (Manual) 1310^3/ul Lymphocytes # 0.810^3/ul Monocytes # 0.410^3/ul Eosinophils # 0.010^3/ul Basophils # 0.010^3/ul Nucleated Red Blood Cells # 0.010^3/ul Sodium Level 139mmol/L Potassium Level 3.5mmol/L Chloride Level 100mmol/L Carbon Dioxide Level 27mmol/L Anion Gap 16 Blood Urea Nitrogen 14mg/dl Creatinine 0.92mg/dl Glucose Level 151mg/dl Calcium Level 9.4mg/dl Total Bilirubin 0.3mg/dl Direct Bilirubin 0.00mg/dl Indirect Bilirubin 0.3mg/dl Aspartate Amino Transf (AST/SGOT) 19IU/L Alanine Aminotransferase (ALT/SGPT) 26IU/L Alkaline Phosphatase 164IU/L Total Protein 8.3g/dl Albumin 4.2g/dl Globulin 4.10g/dl Albumin/Globulin Ratio 1.02 Lipase U/L Current Medications Medications (Trade) Dose Ordered Sig/Julian Route PRN Reason Start Time Stop Time Status Last Admin Dose Admin Sodium Chloride (NS) 1,000 ml @ 1,000 mls/hr Q1H STAT IV 01/04/17 01:04 01/04/17 02:03 DC 01/04/17 01:26 1,000 MLS/HR Hydromorphone HCl (Dilaudid) 1 mg ONCE STAT IV 01/04/17 01:04 01/04/17 01:06 DC 01/04/17 01:26 1 MG Ondansetron HCl (Zofran Inj) 4 mg ONCE STAT IV 01/04/17 01:04 01/04/17 01:06 DC 01/04/17 01:26 4 MG Lorazepam (Ativan) 1 mg ONCE ONCE IV 01/04/17 01:30 01/04/17 01:31 DC 01/04/17 01:26 1 MG Hydromorphone HCl (Dilaudid) 1 mg ONCE STAT IV 01/04/17 01:53 01/04/17 01:54 DC 01/04/17 01:59 1 MG Ondansetron HCl (Zofran Inj) 4 mg BRIDGE ORDER PRN IV NAUSEA AND/OR VOMITING 01/04/17 04:00 01/05/17 03:59 01/04/17 04:08 4 MG Acetaminophen 650 mg 650 mg ER BRIDGE PRN PO MILD PAIN/FEVER 01/04/17 04:00 01/05/17 03:59 Sodium Chloride (NS) 1,000 ml @ 1,000 mls/hr Q1H STAT IV 01/04/17 03:53 01/04/17 04:52 01/04/17 03:58 1,000 MLS/HR Hydromorphone HCl (Dilaudid) 1 mg ONCE STAT IV 01/04/17 03:53 01/04/17 03:54 DC 01/04/17 03:58 1 MG Ondansetron HCl (Zofran Inj) 4 mg ONCE STAT IV 01/04/17 03:53 01/04/17 03:54 DC 01/04/17 03:59 4 MG Lorazepam (Ativan) 1 mg ONCE ONCE IV 01/04/17 04:00 01/04/17 04:01 DC 01/04/17 03:59 1 MG PROCEDURE: CT of the abdomen and pelvis without contrast CLINICAL INDICATION: Abdominal Pain. TECHNIQUE: Spiral CT images through the abdomen and pelvis without the use of contrast. The administered radiation dose is CTDI 16.52 and DLP 1060.32. One or more of the following dose reduction techniques were used: automated exposure control, adjustment of the mA and/or kV according to patient size, or use of iterative reconstruction technique. COMPARISON: None FINDINGS: Lack of oral and intravenous contrast somewhat limits evaluation. Slight dependent atelectasis of the lung bases is seen. No pleural effusion is seen. Minimal probable scarring of the right lung base. Aortic atherosclerotic change and trace coronary artery calcification. Small hiatal hernia. The stomach is distended with fluid. The liver, spleen, adrenals, and kidneys are unremarkable in appearance. There is mild diffuse enlargement of the pancreas with slight stranding of the peripancreatic fat. No biliary or pancreatic ductal dilatation is seen. The gallbladder is not seen and is presumably surgically absent. The duodenum is mildly dilated and fluid - filled. Tiny fat-containing umbilical hernia is seen. The appendix is not seen with certainty. No pericecal inflammatory process is seen.. . The bladder and prostate are unremarkable in appearance. There is no evidence for diverticulitis. No definite small bowel obstruction, free air, or abscess. No adenopathy or ascites is seen. Moderate stool burden. Slight edema of the subcutaneous fat. There is mild degenerative change of the spine. IMPRESSION: Probable mild pancreatitis. No definite ductal dilatation.. RPTAT: [facility] Physician Margaret Date Time Electronically viewed and signed by Physician Margaret on 01/04/2017 02 :16 LE/ CC: BOBBY BRENNER MD ABE, BOLATITO M. Jan 04, 2017 04:26
[2017-01-04] MEDS ORDERED: HYDROCODONE/APAP (7.5/325) TAB PO PRN (04:30)
[2017-01-04] MEDS ORDERED: LORAZEPAM 2 MG INJ IV PRN (04:30)
[2017-01-04] MEDS ORDERED: PANTOPRAZOLE 40 MG INJ IV SCH (06:00)
[2017-01-04] MEDS: SOD CHLORIDE 0.9% 1,000 ML IV SCH ×3 (06:07→20:30)
--- NOTE | 2017-01-04 07:30 | RADRPT ---
PROCEDURE: US gallbladder . CLINICAL INDICATION: Pancreatitis. TECHNIQUE: Multiple real-time images were acquired of the patient's abdomen utilizing a high resol ution transducer. COMPARISON: CT abdomen pelvis from earlier the same date. FINDINGS: Liver appears normal in size and echotexture. The gallbladder is surgically absent. The common bile duct measures 6.0 mm in maximal dimension. Pancreas is poorly visualized secondary to overlying bowel gas. No focal fluid collection is seen. No free fluid is identified. Right kidney appears unremarkable measuring 9.9 cm in length. IMPRESSION: 1. Previous cholecystectomy. 2. Suboptimal visualization of the pancreas secondary to overlying bowel gas. RPTAT: [facility] Physician Crow Date Time Electronically viewed and signed by Physician Crow on 01/04/2017 07:30 /
[2017-01-04] MEDS: morphine 4 MG/ML VIAL IV PRN ×5 (07:46→23:51)
[2017-01-04] MEDS: DOCUSATE SODIUM 100 MG CAP PO SCH ×2 (08:40→21:00)
[2017-01-04] MEDS: hydrALAzine 20 MG INJ IV PRN ×3 (09:46→18:11)
[2017-01-04] MEDS: PROPRANOLOL 40 MG TAB PO SCH ×2 (13:04→21:41)
--- NOTE | 2017-01-04 13:48 | PN ---
Date/Time of Note Date/Time of Note DATE: 01/04/17 TIME: 13:45 Assessment/Plan VTE Prophylaxis VTE Prophylaxis Intervention: SCD's Lines/Catheters Urinary Cath still in place: No Assessment/Plan Assessment/Plan 51 yo M with h/o multiple episodes of acute pancreatitis here for acute pancreatitis. PLAN NPO except meds, IVF. Consider PO in AM cont home meds check a1c and lipids to look for etio of recurrent pancreatitis eps no clear evidence of biliary pathology on available imaging (h/o cholecystectomy but no retained stones seen) will likely refer to GI for outpatient f/u at discharge Subjective 24 Hr Interval Summary Free Text/Dictation Pt affirms he is on both Paxil and Seroquel at home Exam/Review of Systems Vital Signs Vitals Vital Signs Date Time Temp Pulse Resp B/P Pulse Ox O2 Delivery O2 Flow Rate FiO2 01/04/17 10:36 98.3 86 20 169/77 98 Room Air Exam nad laying in bed no mrg lungs clear abd soft no rashes Results Result Diagram: 01/04/1721401/04/17 0215 Results 24 hrs Laboratory Tests Test 01/03/17 22:02 01/04/17 02:15 Bedside Glucose 150 White Blood Count 14.6 #H Red Blood Count 4.36 L Hemoglobin 12.5 L Hematocrit 37.0 L Mean Corpuscular Volume 84.9 Mean Corpuscular Hemoglobin 28.7 L Mean Corpuscular Hemoglobin Concent 33.8 Red Cell Distribution Width 13.4 Platelet Count 255 # Mean Platelet Volume 10.7 H Neutrophils % 91.3 H Lymphocytes % 5.2 L Monocytes % 2.6 Eosinophils % 0.3 Basophils % 0.3 Nucleated Red Blood Cells % 0.0 Neutrophils # (Manual) 13 H Lymphocytes # 0.8 Monocytes # 0.4 Eosinophils # 0.0 Basophils # 0.0 Nucleated Red Blood Cells # 0.0 Sodium Level 139 Potassium Level 3.5 Chloride Level 100 Carbon Dioxide Level 27 Anion Gap 16 Blood Urea Nitrogen 14 Creatinine 0.92 Glucose Level 151 Calcium Level 9.4 Total Bilirubin 0.3 Direct Bilirubin 0.00 Indirect Bilirubin 0.3 Aspartate Amino Transf (AST/SGOT) 19 Alanine Aminotransferase (ALT/SGPT) 26 Alkaline Phosphatase 164 H Total Protein 8.3 H Albumin 4.2 Globulin 4.10 H Albumin/Globulin Ratio 1.02 Lipase Medications Medications Current Medications Sodium Chloride (NS) 1,000 ml @ 125 mls/hr Q8H IV Last administered on 06:07; Admin Dose 125 MLS/HR; Start 01/04/17 at 04:30 Morphine Sulfate (morphine) 4 mg Q4H PRN IV pain Last administered on 11:36; Admin Dose 4 MG; Start 01/04/17 at 04:30 Docusate Sodium (Colace) 100 mg BID PO ; Start 01/04/17 at 09:00 Acetaminophen/ Hydrocodone Bitart ([place] (7.5-325)) 1 tab Q6H PRN PO breakthrough pain; Start 01/04/17 at 04:30 Paroxetine HCl (Paxil) 40 mg HS PO ; Start 01/04/17 at 21:00 Propranolol HCl (Inderal) 40 mg TID PO Last administered on 01/04/17 13:04; Admin Dose 40 MG; Start 01/04/17 at 13:00 Miscellaneous Information 400 mg DAILY PO ; Start 01/05/17 at 09:00; Status UNАНДРЕЙ MICHAEL MD Jan 04, 2017 13:47
[2017-01-04 15:26] LABS: CHOL/HDL RATIO 3.7 RATIO; CHOLESTEROL 161 mg/dl (100-200); HDL CHOLESTEROL 43 mg/dl (28-71); TRIGLYCERIDES 58 mg/dl (0-149)
[2017-01-04 15:27] LABS: ETHANOL < 10.0 mg/dl
[2017-01-04] MEDS ORDERED: hydrALAzine 20 MG INJ ONE (18:09)
[2017-01-04] MEDS: PAROXETINE 20 MG TAB PO SCH (21:00)
[2017-01-04] MEDS: [UNRECOGNIZED DRUG - OTHER] XX SCH (22:00)
[2017-01-04] MEDS: QUETIAPINE FUMARATE 400 MG XX SCH (22:00)
[2017-01-05 01:30] VITALS: BP 186/97; PULSE 59; RESP 20
[2017-01-05] MEDS: hydrALAzine 20 MG INJ IV PRN ×2 (02:05→17:04)
[2017-01-05] MEDS: morphine 4 MG/ML VIAL IV PRN ×2 (03:46→08:14)
[2017-01-05] MEDS: SOD CHLORIDE 0.9% 1,000 ML IV SCH ×4 (04:30→20:24)
[2017-01-05] MEDS: QUETIAPINE FUMARATE 400 MG XX SCH ×3 (06:00→21:12)
[2017-01-05] MEDS: [UNRECOGNIZED DRUG - OTHER] XX SCH ×3 (06:00→21:12)
[2017-01-05] MEDS: AMLODIPINE 10 MG TAB PO SCH ×2 (06:59→09:10)
[2017-01-05 07:15] LABS: BARBITURATES Negative (NEGATIVE); BENZODIAZEPINES Negative (NEGATIVE); CANNABINOIDS Negative (NEGATIVE); COCAINE Negative (NEGATIVE); OPIATES Positive (NEGATIVE)
[2017-01-05 08:09] VITALS: BP 178/91; RESP 18
[2017-01-05 08:45] LABS: ABNORMAL IP MESSAGE 1; BASOPHIL # 0.1 10^3/ul (0.0-0.1); BASOPHILS % 0.3 % (0.0-2.0); HEMATOCRIT 38.8 % (42.0-52.0); HEMOGLOBIN 12.7 g/dl (14.0-18.0); LYMPHOCYTES # 1.5 10^3/ul (0.8-2.9); LYMPHOCYTES % 6.8 % (15.0-51.0); MEAN CORPUSCULAR HEMOGLOBIN 27.4 pg (29.0-33.0); MEAN CORPUSCULAR HGB CONC 32.7 g/dl (32.0-37.0); MEAN CORPUSCULAR VOLUME 83.8 fl (82.0-101.0); MEAN PLATELET VOLUME 12.5 fl (7.4-10.4); MONOCYTE # 1.7 10^3/ul (0.3-0.9); MONOCYTES % 7.3 % (0.0-11.0); NEUTROPHILS % 85.1 % (39.0-77.0); PLATELET COUNT 167 10^3/UL (140-415); POSITIVE DIFF @See below; RED BLOOD COUNT 4.63 10^6/ul (4.70-6.10); RED CELL DISTRIBUTION WIDTH 14.1 % (11.5-14.5); WHITE BLOOD COUNT 22.5 10^3/ul (4.8-10.8)
[2017-01-05] MEDS ORDERED: AMLODIPINE 10 MG TAB PO SCH (09:00)
[2017-01-05] MEDS ORDERED: QUETIAPINE FUMARATE 400 MG PO SCH (09:00)
[2017-01-05] MEDS ORDERED: NICOTINE (21 MG/24 HR) PATCH TRANSDERM SCH (09:00)
[2017-01-05] MEDS: DOCUSATE SODIUM 100 MG CAP PO SCH ×2 (09:00→20:24)
[2017-01-05] MEDS: PROPRANOLOL 40 MG TAB PO SCH ×3 (09:10→20:23)
[2017-01-05 09:12] LABS: ALBUMIN 3.7 g/dl (3.3-4.9); ALBUMIN/GLOBULIN RATIO 0.94; BILIRUBIN,INDIRECT 0.7 mg/dl (0-1.1); BILIRUBIN,TOTAL 0.7 mg/dl (0.2-1.3); CHOL/HDL RATIO 3.8 RATIO; CREATININE 0.66 mg/dl (0.61-1.24); MAGNESIUM 1.7 mg/dl (1.7-2.5); POTASSIUM 3.5 mmol/L (3.5-5.1); TOTAL PROTEIN 7.6 g/dl (6.1-8.1)
[2017-01-05] MEDS: ONDANSETRON 4 MG INJ IV PRN ×2 (10:17→18:06)
[2017-01-05] MEDS ORDERED: NICOTINE (21 MG/24 HR) PATCH TRANSDERM ONE (11:00)
[2017-01-05] MEDS ORDERED: NICOTINE POLACRILEX 2 MG GUM BUCCAL PRN (11:00)
[2017-01-05] MEDS: morphine 10 MG INJ IV PRN ×3 (12:18→20:22)
[2017-01-05] MEDS ORDERED: morphine 4 MG/ML VIAL IV PRN (12:30)
[2017-01-05] MEDS ORDERED: PROMETHAZINE 25 MG TAB PO PRN (13:00)
[2017-01-05] MEDS ORDERED: METOCLOPRAMIDE 10 MG INJ IV PRN (13:00)
--- NOTE | 2017-01-05 14:00 | PN ---
Date/Time of Note Date/Time of Note DATE: 01/05/17 TIME: 13:50 Assessment/Plan VTE Prophylaxis VTE Prophylaxis Intervention: SCD's Lines/Catheters IV Catheter Type (from Nrs): Peripheral IV Urinary Cath still in place: No Assessment/Plan Assessment/Plan 1. Acute pancreatitis, likely stone related, patient had cholecystectomy in 2008, MRCP r/o CBD stone, continue IVF/pain management/clear liquid, add zosyn due to higher WBC 2. HTN, on norvasc and inderal 3. Major depression, stable 4. Tobacco dependence, on patch 5. Leukocytosis Subjective 24 Hr Interval Summary Free Text/Dictation less but still with upper abdominal pain. No vomiting today. no fever or chills Exam/Review of Systems Vital Signs Vitals Vital Signs Date Time Temp Pulse Resp B/P Pulse Ox O2 Delivery O2 Flow Rate FiO2 01/05/17 08:09 98.0 76 18 178/91 98 01/05/17 01:30 Room Air Intake and Output 01/04/17 01/04/17 01/05/17 15:00 23:00 07:00 Intake Total 1000 ml 1000 ml Output Total 300 ml Balance 1000 ml 700 ml Exam Constitutional: alert, oriented, well developed Head: atraumatic, normocephalic Eyes: EOMI, PERRL, nl conjunctiva, nl lids ENMT: nl external ears & nose, nl lips & teeth, nl nasal mucosa & septum Neck: non-tender, supple Respiratory: clear to auscultation, normal air movement, No congested cough, No crackles/rales, No diminished breath sounds, No intercostal retraction, No labored breathing, No other, No respirations, No tactile fremitus, No wheezing Cardiovascular: nl pulses, regular rate and rhythm, No S3, No S4, No bruits, No diastolic murmur, No edema, No gallop, No irregular rhythm, No jugular venous distention (JVD), No murmurs/extra sounds, No other, No rub, No systolic murmur Gastrointestinal: nl liver, spleen, soft, No ascites, No bowel sounds, No distended, No firm, No hepatomegaly, No mass , No other, No rebound or guarding, No splenomegaly Musculoskeletal: nl extremities to inspection Extremities: normal pulses, No calf tenderness, No clubbing, No cyanosis, No edema, No other, No palpable cord, No pitting pedal edema, No tenderness Neurological: PSYCHOLOGY PHYSICIAN II-XII intact, nl mental status, nl speech, nl strength Skin: nl turgor Results Result Diagram: 01/05/17 0802 01/05/17 0802 Results 24 hrs Laboratory Tests Test 01/04/17 14:04 01/04/17 14:05 01/05/17 03:50 01/05/17 08:02 Triglycerides Level 58 65 Cholesterol Level 161 158 LDL Cholesterol, Calculated 106 104 HDL Cholesterol 43 41 Cholesterol/HDL Ratio 3.7 3.8 Ethyl Alcohol Level < 10.0 Hemoglobin A1c 5.4 Urine Opiates Screen Positive Urine Barbiturates Negative Urine Amphetamines Screen Negative Urine Benzodiazepines Screen Negative Urine Cocaine Screen Negative Urine Cannabinoids Negative White Blood Count 22.5 #H Red Blood Count 4.63 L Hemoglobin 12.7 L Hematocrit 38.8 L Mean Corpuscular Volume 83.8 Mean Corpuscular Hemoglobin 27.4 L Mean Corpuscular Hemoglobin Concent 32.7 Red Cell Distribution Width 14.1 Platelet Count 167 # Mean Platelet Volume 12.5 H Neutrophils % 85.1 H Lymphocytes % 6.8 L Monocytes % 7.3 Eosinophils % 0.0 Basophils % 0.3 Nucleated Red Blood Cells % 0.0 Neutrophils # (Manual) 19.2 H Lymphocytes # 1.5 Monocytes # 1.7 H Eosinophils # 0.0 Basophils # 0.1 Nucleated Red Blood Cells # 0.0 Sodium Level 139 Potassium Level 3.5 Chloride Level 100 Carbon Dioxide Level 22 Anion Gap 21 H Blood Urea Nitrogen 9 Creatinine 0.66 Glucose Level 83 # Calcium Level 9.0 Magnesium Level 1.7 Total Bilirubin 0.7 Direct Bilirubin 0.00 Indirect Bilirubin 0.7 Aspartate Amino Transf (AST/SGOT) 23 Alanine Aminotransferase (ALT/SGPT) 24 Alkaline Phosphatase 147 H Total Protein 7.6 Albumin 3.7 Globulin 3.90 H Albumin/Globulin Ratio 0.94 Amylase Level 424 H Lipase 621 H Medications Medications Current Medications Sodium Chloride (NS) 1,000 ml @ 125 mls/hr Q8H IV Last administered on t 06:23; Admin Dose 125 MLS/HR; Start 01/04/17 at 04:30 Docusate Sodium (Colace) 100 mg BID PO ; Start 01/04/17 at 09:00 Acetaminophen/ Hydrocodone Bitart ([place] (7.5-325)) 1 tab Q6H PRN PO breakthrough pain; Start 01/04/17 at 04:30 Paroxetine HCl (Paxil) 40 mg HS PO ; Start 01/04/17 at 21:00 Propranolol HCl (Inderal) 40 mg TID PO Last administered on 01/05/17 09:10; Admin Dose 40 MG; Start 01/04/17 at 13:00 Miscellaneous Information (*Order Clarification Bulletin) *Quetiapine Fumarate* (Seroqu... Q8H XX ; Start 01/04/17 at 14:00 Hydralazine HCl (Apresoline) 10 mg Q6H PRN IV ELEVATED SYSTOLIC BP Last administered on 01/05/17 02:05; Admin Dose 10 MG; Start 01/05/17 at 02:00 Amlodipine Besylate (Norvasc) 10 mg DAILY PO Last administered on 01/05/17 09: 10; Admin Dose 10 MG; Start 01/05/17 at 07:01 Ondansetron HCl (Zofran Inj) 4 mg Q4H PRN IV NAUSEA AND/OR VOMITING Last administered on 01/05/17 10:17; Admin Dose 4 MG; Start 01/05/17 at 10:00 Nicotine (Nicoderm 21 Mg/ 24hr) 1 patch DAILY TRANSDERM ; Start 01/06/17 at 09: 00 Nicotine Polacrilex (Nicorette) 2 mg Q2H PRN BUCCAL agitation; Start 01/05/17 at 11:00 Miscellaneous Information 400 mg DAILY XX ; Start 01/06/17 at 09:00; Status UNV Morphine Sulfate (morphine) 5 mg Q4H PRN IV PAIN Last administered on 12:18; Admin Dose 5 MG; Start 01/05/17 at 12:30 Metoclopramide HCl (Reglan) 10 mg Q6 PRN IV NAUSEA; Start 01/05/17 at 13:00 Promethazine HCl (Phenergan) 25 mg Q6H PRN PO NAUSEA; Start 01/05/17 at 13:00 ZECHARIAH BRUNO MD Jan 05, 2017 14:00
[2017-01-05 14:39] VITALS: BP 163/88; PULSE 68; RESP 18
[2017-01-05] MEDS: PIPER-TAZO 3.375 GM IV (PMX) 100 ML IVPB SCH ×2 (14:46→21:11)
[2017-01-05 17:00] VITALS: BP 173/101
[2017-01-05 19:54] VITALS: BP 152/73; RESP 20
[2017-01-05] MEDS: PAROXETINE 20 MG TAB PO SCH (20:24)
[2017-01-06 02:00] VITALS: BP 177/86; PULSE 61; RESP 20
[2017-01-06 04:00] VITALS: BP 143/87; PULSE 82
[2017-01-06] MEDS: SOD CHLORIDE 0.9% 1,000 ML IV SCH ×2 (04:30→12:30)
[2017-01-06] MEDS: QUETIAPINE FUMARATE 400 MG XX SCH ×2 (06:00→14:00)
[2017-01-06] MEDS: [UNRECOGNIZED DRUG - OTHER] XX SCH ×2 (06:00→14:00)
[2017-01-06] MEDS: PIPER-TAZO 3.375 GM IV (PMX) 100 ML IVPB SCH (06:28)
[2017-01-06 08:11] VITALS: BP 150/70; RESP 18
[2017-01-06] MEDS: morphine 10 MG INJ IV PRN ×2 (08:35→12:32)
[2017-01-06] MEDS ORDERED: NICOTINE (21 MG/24 HR) PATCH TRANSDERM SCH (09:00)
[2017-01-06] MEDS: DOCUSATE SODIUM 100 MG CAP PO SCH ×2 (09:00→10:58)
[2017-01-06] MEDS ORDERED: QUETIAPINE 100 MG TAB PO SCH (09:00)
[2017-01-06] MEDS ORDERED: QUETIAPINE FUMARATE 400 MG XX SCH ×2 (09:00)
[2017-01-06 10:41] LABS: ABNORMAL IP MESSAGE 1; BASOPHIL # 0.1 10^3/ul (0.0-0.1); BASOPHILS % 0.4 % (0.0-2.0); EOSINOPHILS # 0.1 10^3/ul (0.0-0.5); EOSINOPHILS % 0.4 % (0.0-7.0); HEMATOCRIT 40.3 % (42.0-52.0); HEMOGLOBIN 13.5 g/dl (14.0-18.0); LYMPHOCYTES % 11.6 % (15.0-51.0); MEAN CORPUSCULAR HGB CONC 33.5 g/dl (32.0-37.0); MEAN CORPUSCULAR VOLUME 83.6 fl (82.0-101.0); MEAN PLATELET VOLUME 11.9 fl (7.4-10.4); MONOCYTE # 1.9 10^3/ul (0.3-0.9); MONOCYTES % 11.2 % (0.0-11.0); PLATELET COUNT 188 10^3/UL (140-415); POSITIVE DIFF @See below; RED BLOOD COUNT 4.82 10^6/ul (4.70-6.10); RED CELL DISTRIBUTION WIDTH 13.5 % (11.5-14.5); WHITE BLOOD COUNT 17.3 10^3/ul (4.8-10.8)
[2017-01-06] MEDS: PROPRANOLOL 40 MG TAB PO SCH ×2 (10:58→13:00)
[2017-01-06] MEDS: AMLODIPINE 10 MG TAB PO SCH (11:00)
[2017-01-06 11:03] LABS: ALBUMIN 3.5 g/dl (3.3-4.9); ALBUMIN/GLOBULIN RATIO 0.87; BILIRUBIN,INDIRECT 0.7 mg/dl (0-1.1); BILIRUBIN,TOTAL 0.7 mg/dl (0.2-1.3); CALCIUM 8.7 mg/dl (8.4-10.2); CREATININE 0.7 mg/dl (0.61-1.24); POTASSIUM 3.4 mmol/L (3.5-5.1); TOTAL PROTEIN 7.5 g/dl (6.1-8.1)
[2017-01-06] MEDS ORDERED: POTASSIUM CHLORIDE (SR) 20 MEQ TAB PO STA (12:26)
[2017-01-06 14:00] VITALS: BP 160/90; RESP 18
--- NOTE | 2017-01-06 15:11 | RADRPT ---
PROCEDURE: MR Abdomen and MRCP. CLINICAL INDICATION: Rule out CBD stone. Abdominal pain. Pancreatitis. TECHNIQUE: MRI abdomen without contrast and MRCP was performed on a high-resolution high field [facility]. Patient was examined without IV contrast. 3-D coronal rotating MIP images of the biliary tree are available for review. COMPARISON: Ultrasound abdomen 01/04/2017; CT scan abdomen 01/04/2017 FINDINGS: MRI Abdomen: The liver is normal in size and homogeneous in signal intensity. There is normal signal intensity w ithin the liver. No liver mass lesion or intrahepatic biliary dilatation is seen. The spleen is no rmal in size and homogeneous in signal intensity. The stomach is partially collapsed but grossly un remarkable. The pancreas, as visualized, is diffusely edematous consistent with acute pancreatitis. Several tiny fluid collections are seen along the anterior margin of the body of the pancreas cons istent with tiny subtle phlegmonous secondary to the acute pancreatitis. No pancreatic lesion is se en. The adrenal glands and kidneys are symmetrically normal. The aorta is of normal caliber. Ther e is no retroperitoneal lymphadenopathy. The bowel and mesentery, as visualized, are all unremarkab le. MRCP: The gallbladder is surgically absent. The biliary tree is not dilated. No intrahepatic nor extrahep atic biliary dilatation is present. No choledocholithiasis or filling defect or stricture or mass l esion or obstruction of the biliary tree is present. The pancreatic duct, as visualized, is equally unremarkable. IMPRESSION: 1. Edematous changes of the pancreas consistent with acute pancreatitis. 2. Several tiny phlegmons along the anterior margin of the body of the pancreas. 3. No choledocholithiasis or biliary dilatation or biliary obstruction. 4. Status post cholecystectomy. RPTAT: HMJB .Efrem Salas MD, MD Date Time Electronically viewed and signed by .Efrem Salas MD, MD on 01/06/2017 15:11 .B/
--- NOTE | 2017-01-06 15:59 | PDOCDIS ---
Discharge Instructions DIAGNOSIS Discharge Diagnosis acute pancreatitis CONDITION Patient Condition: Stable HOME CARE INSTRUCTIONS: Diet Instructions: Regular FOLLOW UP/APPOINTMENTS Follow-up Plan Do not drink alcohol Follow up with your regular doctor to figure out why you keep having these pancreatis episodes АНДРЕЙ LINK MD Jan 06, 2017 15:59
--- NOTE | 2017-01-06 16:04 | DS ---
Date/Time of Note Date/Time of Note DATE: 01/06/17 TIME: 15:59 Discharge Summary Admission/Discharge Info Admit Date/Time Jan 04, 2017 at 03:38 Discharge Date/Time Discharge Diagnosis acute pancreatitis Patient Condition: Stable Procedures 01.06 MRCP IMPRESSION: 1. Edematous changes of the pancreas consistent with acute pancreatitis. 2. Several tiny phlegmons along the anterior margin of the body of the pancreas. 3. No choledocholithiasis or biliary dilatation or biliary obstruction. 4. Status post cholecystectomy. 01.04 gallbladder US IMPRESSION: 1. Previous cholecystectomy. 2. Suboptimal visualization of the pancreas secondary to overlying bowel gas. CT AP 01.04 IMPRESSION: Probable mild pancreatitis. No definite ductal dilatation.. lipase on admisison: too high to quantify, lipase on date of discharge 309 Hx of Present Illness 51 yo M with multiple admissions for acute pancreatitis here for abd pain. Imaging consistent with pancreatitis. Hospital Course Pt initially NPO with IVFs, able to tolerate general diet by date of discharge. Lipase improved. Re etio of pancreatitis, no retained stones on MRCP. Glucose and triglycerides not markedly elevated. Pt advised to f/u with PCP to explore this issue further. Home Meds Active Scripts Sulfamethoxazole/Trimethoprim* (Bactrim Ds* Tablet) 1 Each Tablet, 1 TAB PO BID for 7 Days, #14 TAB Prov:CHASIDY GARNETT MD 12/22/16 Ibuprofen* (Motrin*) 600 Mg Tab, 600 MG PO Q6, #20 TAB Prov:CHASIDY GARNETT MD 07/15/15 Reported Medications Quetiapine Fumarate* (Seroquel* XR) 400 Mg Tab.sr.24h, 400 MG PO DAILY, #30 TAB TK 2 TABLETS AT BEDTIME 01/04/17 Paroxetine Hcl* (Paxil*) 40 Mg Tablet, 40 MG PO HS, TAB 01/04/17 Propranolol Hcl* (Propranolol Hcl*) 40 Mg Tablet, 40 MG PO TID, TAB 01/04/17 Discontinued Scripts Cephalexin* (Keflex*) 500 Mg Capsule, 500 MG PO QID for 7 Days, CAP Prov:CHASIDY GARNETT MD 12/22/16 Hydrocodone/Acetaminophen ([place] 5-325 Tablet) 1 Each Tablet, 1 TAB PO Q6H Y for PAIN, #12 TAB Prov:CHASIDY GARNETT MD 12/22/16 Ibuprofen* (Motrin*) 400 Mg Tab, 400 MG PO Q6, #30 TAB Prov:SHANTI,JOANNA 10/08/16 Sulfamethoxazole/Trimethoprim* (Bactrim Ds* Tablet) 1 Each Tablet, 1 TAB PO BID for 10 Days, #20 TAB Prov:SHANTI,JOANNA 10/08/16 Cephalexin* (Keflex*) 500 Mg Capsule, 500 MG PO QID for 10 Days, CAP Prov:SHANTI,JOANNA 10/08/16 Ibuprofen* (Motrin*) 800 Mg Tab, 800 MG PO Q6H Y for PAIN AND OR ELEVATED TEMP, #30 TAB Prov:BOBBY BRENNER MD 08/13/16 Cephalexin* (Keflex*) 500 Mg Capsule, 500 MG PO QID for 7 Days, CAP Prov:BOBBY BRENNER MD 08/13/16 Sulfamethoxazole-Trimethoprim* (Bactrim* DS) 800-160 Mg Tab, 1 TAB PO BID for 7 Days, TAB Prov:BOBBY BRENNER MD 08/13/16 Hydrocodone Bit-Acetaminophen* ([place]*) 5-325 Mg Tab, 1 TAB PO Q6 Y for PAIN, # 10 TAB Prov:CHASIDY GARNETT MD 07/15/15 Follow-up Plan PCP within 7 days Primary Care Provider Not On Staff Doctor Time spent on discharge: > 30 minutes Pending Labs Laboratory Tests Test 01/06/17 05:00 01/06/17 09:40 White Blood Count 17.310^3/ul (4.8-10.8) Red Blood Count 4.8210^6/ul (4.70-6.10) Hemoglobin 13.5g/dl (14.0-18.0) Hematocrit 40.3% (42.0-52.0) Mean Corpuscular Volume 83.6fl (82.0-101.0) Mean Corpuscular Hemoglobin 28.0pg (29.0-33.0) Mean Corpuscular Hemoglobin Concent 33.5g/dl (32.0-37.0) Red Cell Distribution Width 13.5% (11.5-14.5) Platelet Count 67580^3/UL (140-415) Mean Platelet Volume 11.9fl (7.4-10.4) Neutrophils % 76.0% (39.0-77.0) Lymphocytes % 11.6% (15.0-51.0) Monocytes % 11.2% (0.0-11.0) Eosinophils % 0.4% (0.0-7.0) Basophils % 0.4% (0.0-2.0) Nucleated Red Blood Cells % 0.0/100WBC (0.0-0.0) Neutrophils # (Manual) 13.210^3/ul (1.7-7.5) Lymphocytes # 2.010^3/ul (0.8-2.9) Monocytes # 1.910^3/ul (0.3-0.9) Eosinophils # 0.110^3/ul (0.0-0.5) Basophils # 0.110^3/ul (0.0-0.1) Nucleated Red Blood Cells # 0.010^3/ul (0.0-0.0) Sodium Level 138mmol/L (135-144) Potassium Level 3.4mmol/L (3.5-5.1) Chloride Level 102mmol/L (97-110) Carbon Dioxide Level 22mmol/L (21-31) Anion Gap 17 (8-16) Blood Urea Nitrogen 9mg/dl (7-20) Creatinine 0.70mg/dl (0.61-1.24) Glucose Level 110mg/dl (70-220) Calcium Level 8.7mg/dl (8.4-10.2) Total Bilirubin 0.7mg/dl (0.2-1.3) Direct Bilirubin 0.00mg/dl (0.00-0.20) Indirect Bilirubin 0.7mg/dl (0-1.1) Aspartate Amino Transf (AST/SGOT) 23IU/L (15-46) Alanine Aminotransferase (ALT/SGPT) 22IU/L (13-69) Alkaline Phosphatase 137IU/L (42-121) Total Protein 7.5g/dl (6.1-8.1) Albumin 3.5g/dl (3.3-4.9) Globulin 4.00g/dl (1.3-3.2) Albumin/Globulin Ratio 0.87 Amylase Level 133U/L (11-123) Lipase 309U/L (23-300) АНДРЕЙ LINK MD Jan 06, 2017 16:04
== END 2017-01-06 17:00 | disposition home or self-care (01) | DRG 440 ==
LOC: E/R 21:28 → MS3 01-04 03:38 → MS2 01-04 19:19
PROVIDERS: ADMIT Family Medicine; ATTEND Family Medicine
DX: K85.90 Acute pancreatitis without necrosis or infection, unspecified (principal); I10 Essential (primary) hypertension; F32.9 Major depressive disorder, single episode, unspecified; F17.200 Nicotine dependence, unspecified, uncomplicated; D72.829 Elevated white blood cell count, unspecified; Z90.49 Acquired absence of other specified parts of digestive tract
CPT/HCPCS: 36415; 74176; 74181; 76705; 76937; 80053; 80061; 80306; 80307; 82150; 82962; 83036; 83690; 83735; 85025; 93005; 96374; 96375; 96376; C9113; J0360; J1170; J2060; J2270; J2405; J2543; J2765; J7030